=== PATIENT | female | born 1960 | race Caucasian/White ===

== ENCOUNTER 2017-06-13 13:05 | Emergency (ER) | payer BC ==
[~2017-06-13] VITALS: Ht 165.1 cm; Wt 129.3 kg
--- NOTE | ~2017-06-13 | CR173 ---
[facility] A Service [facility] RADIOLOGY TEXT RESULTS PATIENT: TIFFANY MCINTYRE LOCATION: [facility] : 58 UNIT #: [id number] AGE: [address]: HANANE MARTIN SEX: F ORDER DR: [id number] [facility] [address]. [place], [place] [address] [id number] E MR#: [id number] Acc #: [id number] NAME: TIFFANY MCINTYRE : 1960 SEX: F STUDY DATE/TIME: 06/13/2017 13:30 UNIT: CFTX ROOM: STUDY DESCRIPTION: CR Knee 3 Views Rt Attending Physician: Hanane Martin A.P.R.N. Ordering Physician: Hanane Martin A.P.R.N. Primary Care Physician: Herrera Kerr M.D. MEDICAL IMAGING REPORT This report is preliminary unless electronic signature is present EXAM 3 views right knee, 06/13/2017. HISTORY Right posterior knee pain after felt an audible pop today. Symptoms began 2 weeks ago. COMPARISON None FINDINGS No acute fracture or joint dislocation is seen. Posterior patellar osteophytes are present. There are tiny tibial spine spurs. No joint effusion. Small bony exostosis projects from the anterolateral margin of the patella. IMPRESSION 1. No acute right knee findings. 2. Mild degenerative spurring of the posterior patella and tibial spines. Benign-appearing bony exostosis off the anterior patella. 3. No joint effusion. Dictated by... Loree Roblero M.D. THIS IS AN ELECTRONICALLY VERIFIED REPORT Loree Roblero M.D. at 06/14/2017 8:56 AM ROBERT/chuy TD: 06/13/2017 17:49 JOB #: [id number] [facility] A Service [facility] RADIOLOGY TEXT RESULTS PATIENT: TIFFANY MCINTYRE LOCATION: [facility] : 58 UNIT #: [id number] AGE: [address]: HANANE MARTIN SEX: F ORDER DR: MEDICAL IMAGING REPORT Page 1 of 1 COPY
--- NOTE | ~2017-06-13 | US85 ---
[facility] A Service [facility] RADIOLOGY TEXT RESULTS PATIENT: TIFFANY MCINTYRE LOCATION: [place] : 58 UNIT #: [id number] AGE: [address]: HANANE MARTIN SEX: F ORDER DR: [id number] [facility] [address]. [place], [place] [address] [id number] E MR#: [id number] Acc #: [id number] NAME: TIFFANY MCINTYRE. : 1960 SEX: F STUDY DATE/TIME: 06/13/2017 13:48 UNIT: CFMN ROOM: STUDY DESCRIPTION: [facility] Attending Physician: Hanane Martin A.P.R.N. Ordering Physician: Hanane Martin A.P.R.N. Primary Care Physician: Herrera Kerr M.D. MEDICAL IMAGING REPORT This report is preliminary unless electronic signature is present EXAM Right lower extremity Doppler venous ultrasound. DATE 06/13/2017 HISTORY Right knee and leg pain for 2 weeks, worse for the past day. TECHNIQUE Venous ultrasound examination of the right lower extremity was performed using grayscale, spectral Doppler and color flow Doppler imaging. FINDINGS The examination is negative. There is no evidence of right lower extremity deep venous thrombus from the groin to the lower calf. Visualized greater saphenous vein is also patent. IMPRESSION Negative examination. No evidence of right lower extremity deep venous thrombosis. Dictated by... Loree Roblero M.D. THIS IS AN ELECTRONICALLY VERIFIED REPORT Loree Roblero M.D. at 06/14/2017 8:56 AM [facility]/medhat TD: 06/13/2017 17:57 JOB #: [id number] [facility] A Service [facility] RADIOLOGY TEXT RESULTS PATIENT: TIFFANY MCINTYRE LOCATION: [place] : 58 UNIT #: [id number] AGE: [address]: HANANE MARTIN SEX: F ORDER DR: MEDICAL IMAGING REPORT Page 1 of 1 COPY
[~2017-06-13 13:05] MED LIST: BAYER CHEWABLE81 MG PO; CERTAGEN PO; CITALOPRAM HBR10 MG PO; CLARITIN10 M2 PO; CLARITIN10 MG PO; DIOVAN HCT 320/1 TAB PO; FAMOTIDINE PO; GLUCOVANCE 5/501 TA1 PO; LEVEMIR SUBQ; METFORMIN PO; NOVOLOG100 U/ML; NOVOLOG100 U/ML SUBQ; SIMCOR 500-401 EACH PO; TRADJENTA5 MG PO; TRILIPIX135 MG PO; VITAMIN C PO; ZESTORETIC 10/11 TAB PO; [UNRECOGNIZED DRUG - OTHER] SQ
== END 2017-06-13 15:05 | disposition home or self-care (01) ==
LOC: CED 13:05 → CFTX 13:05
DX: M25.561 Pain in right knee (principal); E11.9 Type 2 diabetes mellitus without complications; Z90.49 Acquired absence of other specified parts of digestive tract; Z88.0 Allergy status to penicillin; Z88.8 Allergy status to other drugs, medicaments and biological substances
CPT/HCPCS: 29505; 73562; 93971; 96372; 99284; J1170

== ENCOUNTER → 2017-06-16 | Outpatient (CLI) | payer BC ==
--- NOTE | ~2017-06-16 | MR104 ---
[facility] A Service of [facility] RADIOLOGY TEXT RESULTS PATIENT: TIFFANY MCINTYRE LOCATION: [facility] : 58 UNIT #: [id number] AGE: [address]: Ronald Clemens MD SEX: F ORDER DR: [id number] [facility] [address] [place], [place] [address] [id number] O MR#: [id number] Acc #: [id number] NAME: TIFFANY MCINTYRE : 1960 SEX: F STUDY DATE/TIME: 06/16/2017 15:16 UNIT: CMRI ROOM: STUDY DESCRIPTION: MR Knee Wo Contrast Rt Attending Physician: Ronald Clemens M.D. Referring Physician: Ronald Clemens M.D. Ordering Physician: Ronald Clemens M.D. Primary Care Physician: Herrera Kerr M.D. MRI CENTER REPORT This report is preliminary unless electronic signature is present. EXAM MRI of the right knee without contrast. HISTORY Right medial knee pain, posterior knee pain over 2 weeks. Stepped off porch wrong 06/14/2017. COMPARISON Right knee films 06/13/2017. FINDINGS Multiplanar, multiecho imaging was performed of the right knee utilizing a high field magnet and dedicated protocol. Small knee effusion. No visible loose body. In the medial compartment, there is a radial tear, root attachment, posterior horn medial meniscus measuring about 7 mm in width and representing a full-thickness or near full-thickness tear. 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 There is also a horizontal cleavage tear midbody segment of the medial meniscus. Medial compartment articular cartilage unremarkable. There is a small amount of edema near the root attachment posterior horn of the medial meniscus may represent enthesopathic marrow changes. Lateral meniscus and lateral compartment articular cartilage appears normal. Patellar cartilage unremarkable. There is a 9 mm focus of moderate-grade chondromalacia medial femoral trochlea with a small amount of subchondral edema. Anterior cruciate ligament demonstrates diffuse thickening and increased signal compatible with mucinous degeneration. The posterior cruciate ligament appears intact. Medial collateral ligament demonstrates some edema superficial and deep to the MCL could represent a grade 1 MCL sprain. The lateral collateral ligament complex appears normal. Extensor mechanism unremarkable. [facility]. [facility] A Service of [facility] RADIOLOGY TEXT RESULTS PATIENT: TIFFANY MCINTYRE LOCATION: [facility] : 58 UNIT #: [id number] AGE: [address]: Ronald Clemens MD SEX: F ORDER DR: IMPRESSION 1. 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 2. 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 3. Grade 1 medial collateral ligament sprain. Dictated by... Vesta Medina M.D. THIS IS AN ELECTRONICALLY VERIFIED REPORT Vesta Medina M.D. at 06/17/2017 5:03 PM DEACON/medhat TD: 06/17/2017 16:15 JOB #: [id number] MRI CENTER REPORT Page 1 of 1 COPY
== END | disposition home or self-care (01) ==
LOC: CMRI 14:08
DX: M25.561 Pain in right knee (principal); M25.461 Effusion, right knee; M23.321 Other meniscus derangements, posterior horn of medial meniscus, right knee; M94.261 Chondromalacia, right knee; S83.411A Sprain of medial collateral ligament of right knee, initial encounter
CPT/HCPCS: 73721